=== PATIENT | female | born 1935 | race Caucasian/White ===

== ENCOUNTER 2020-06-01 08:09 | Emergency (ER) | payer MEDICARE ==
[~2020-06-01] VITALS: Ht 157.5 cm; Wt 49.9 kg
--- NOTE | 2020-06-01 08:09 | NUR ---
Patient ALMA GONZALEZ from [facility], transferred to bed 5. RN evaluating patient at bedside.
[2020-06-01] MEDS ORDERED: NACL 0.9% 1,000 ML IV SCH (08:20)
[2020-06-01 08:32] VITALS: BP 93/53
--- NOTE | 2020-06-01 08:40 | NUR ---
85 YEAR OLD FEMALE BIBA FROM [facility] FOR GENERALIZED WEAKNESS X 3 DAYS. PT STATES THAT SHE IS USUALLY A LITTLE MORE ACTIVE, BUT FEELS VERY WEAK. PT AOX4, BREATHING EVEN AND UNLABORED, SKIN WARM AND DRY. PT PLACED ON MONITOR, VS STABLE. BED IN LOWEST POSITION, LOCKED, BED RAIL UPX1. PMH - PARKINSONS, HTN ALLERGIES - NKA
[2020-06-01 09:02] LABS: WHITE BLOOD COUNT (AUTO) 13.1 K/uL (4.8-10.8)
[2020-06-01 09:03] LABS: HEMATOCRIT 34.3 % (36-48); HEMOGLOBIN 11.1 g/dL (12.0-16.0); LYMPHOCYTES % (AUTO) 4.6 % (20.5-51.1); MEAN CORPUSCULAR HEMOGLOBIN 30 pg (27-31); MEAN CORPUSCULAR HGB CONC 33 g/dL (33-37); NEUTROPHILS % (AUTO) 87.2 % (42.2-75.2); PLATELET COUNT (AUTO) 242 K/uL (140-450); RED BLOOD CELL COUNT(AUTO) 3.73 MIL/uL (4.20-5.40); RED CELL DISTRIBUTION WIDTH 14.7 % (11.6-13.7)
[2020-06-01 09:04] LABS: BASOPHILS % (AUTO) 0.1 % (0.0-2.0); EOSINOPHILS % (AUTO) 0.4 % (0.0-4.0); MONOCYTES % (AUTO) 7.7 % (1.7-9.3); NEUTROPHILS # (AUTO) 11.4 K/uL (1.8-7.7)
[2020-06-01 09:05] LABS: EOSINOPHILS # (AUTO) 0.1 K/uL (0-0.4); LYMPHOCYTES # (AUTO) 0.6 K/uL (2.5-16.5)
[2020-06-01 09:28] LABS: ANION GAP 11.3 (8-16); CARBON DIOXIDE 27.8 mmol/L (21-32); CHLORIDE 102 mmol/L (98-107); CREATININE 0.6 mg/dL (0.6-1.3); GLUCOSE 74 mg/dL (74-106); POTASSIUM 4.1 mmol/L (3.5-5.1); SODIUM SERUM 137 mmol/L (136-145); UREA NITROGEN, BLOOD 27 mg/dL (7-18)
[2020-06-01 12:10] LABS: APPEARANCE,URINE CLEAR (CLEAR)
[2020-06-01 12:11] LABS: BILIRUBIN,URINE NEGATIVE (NEGATIVE); BLOOD, URINE NEGATIVE (NEGATIVE); COLOR,URINE YELLOW (YELLOW); LEUKOCYTE ESTERASE ,URINE NEGATIVE (NEGATIVE); NITRITE, URINE NEGATIVE (NEGATIVE); UGLUCOSE NEGATIVE (NEGATIVE)
--- NOTE | 2020-06-01 12:49 | NUR ---
Left message for patients daughter to inform her that patient will be returning to [facility].
--- NOTE | 2020-06-01 12:53 | NUR ---
IV d/c, 2x2 gauze placed to IV site, bleeding controlled
[2020-06-01 13:01] VITALS: BP 117/52
--- NOTE | 2020-06-01 13:01 | NUR ---
Patient discharged with v/s stable. Written and verbal after care instructions given and explained. Patient verbalized understanding. Ambulatory with steady gait. All questions addressed prior to discharge. Advised to follow up with PMD.
--- NOTE | 2020-06-09 16:53 | NUR ---
LATE ENTRY -- NORMAL SALINE ENDED 06/01/20 AT 1049
== END 2020-06-01 13:01 ==
LOC: MED 08:09
DX: R53.1 Weakness (principal)
CPT/HCPCS: 36415; 80048; 81003; 85025; 96360; 99283; J7030